=== PATIENT | female | born 1985 | race Caucasian/White ===

== ENCOUNTER 2020-11-25 01:04 | Emergency (ER) | payer MEDICAID, SELFPAY ==
[2020-11-25 01:04] VITALS: BP 153/97; PULSE 99; RESP 16; TEMP 36.8; O2SAT 95; BMI 26.6
--- NOTE | 2020-11-25 01:18 | ED.DCSUM_ITS ---
History of Present Illness Chief Complaint: Dental Informant: Patient Narrative: Patient presenting for evaluation secondary to dental pain. Patient reports that she had a root canal performed 2 days ago, and the last day she has had a significantly increasing onset of pain near the area where she had the root canal. She does report that she has some jaw swelling. No fevers chills sweats nausea vomiting or any new difficulty with opening closing her mouth. She does have a history of TMJ this is unchanged. No difficulty swallowing. She has been taking ibuprofen at home as well as using Orajel and this has not alleviated her symptoms. Review of systems otherwise negative. Past Medical History - Allergies and Home Meds Allergies/Adverse Reactions: Allergies No Known Allergies Allergy (Verified 11/25/20 01:09) Primary Care Physician: Chip Wright NP, DEVELOPMENTAL MATHEMATICS INSTRUCTOR-C [Primary Care Provider] - Prior records reviewed: Yes Past Medical History: None Surgical History: noncontributory Lives: With Family Smoking Status: Current every day smoker Alcohol: None Drugs: None Review of Systems General: Denies: Fever ENT: Reports: Right ear pain, - - Dental pain Respiratory: Denies: Dyspnea Gastrointestinal: Denies: Nausea, Vomiting Musculoskeletal: Denies: Myalgias Skin: Denies: Rash Neurological: Denies: Headache Hematologic: Denies: Easy bruising, Easy bleeding Physical Exam Vital Signs/Narrative: Vital Signs Temp Pulse Resp BP Pulse Ox 11/25/20 01:04 98.3 F 99 16 153/97 H 95 Inital Vital Signs reviewed: Yes General: Well nourished, Well developed, No Acute Distress Head: Normocephalic, Atraumatic Eyes: EOMI ENT: Moist mucous membranes, - - Patient's first right mandibular molar has a postoperative filling. There is no evidence of focal gum swelling or abscess. No trismus. Mild swelling noted to the outside of the face with no evidence of cellulitis. Clear posterior pharynx. Sublingual space is soft. Neck: Supple, Nontender Cardiovascular: Regular rate, Regular rhythm Respiratory: No distress Skin: Normal color, No rash Neurological: Alert, Oriented x3 Diagnostic/Tx/Re-eval - Medical Decision Making Patient presented secondary to dental pain. There is no outward evidence of significant infection although she does have some swelling of her jaw in that area. Patient was treated with an inferior alveolar block for pain control immediately. She will be discharged with a course of penicillin and a protra cted course of [place] until she can follow-up with her dentist. She was discharged in improved condition. Procedures Procedure(s): Inferior alveolar block was performed. Patient was placed in a semirecumbent position. Direct lighting was utilized, landmarks were located. A 24-gauge needle was entered and directed towards the angle of the patient's mandible. Bupivacaine was injected, total of 1-1/2 cc. Patient tolerated this well. ED Disposition - Plan for ED Patient: Disposition: Home or Assisted Living Diagnosis: Pain, dental Instructions: ED Dental Pain Prescriptions: Hydrocodone Bitart/Apap 5-325 [[place] 5MG-325MG] 1 tab PO Q6H PRN PRN 3 Days #12 tab PRN Reason: Pain Prescription Printed Penicillin V Potassium 500 mg PO 4X/DAY #20 tab Prescription Printed Additional Instructions: Follow-up with your dentist as soon as possible
[2020-11-25] MEDS: Penicillin Vk 250 MG Tablet 500 MG PO (01:32)
== END 2020-11-25 01:36 | disposition home or self-care (01) ==
PROVIDERS: Emergency Provider Emergency Medicine; PCP Nurse Practitioner Family
DX: K08.89 Other specified disorders of teeth and supporting structures (principal); Z98.818 Other dental procedure status; M26.609 Unspecified temporomandibular joint disorder, unspecified side; F17.200 Nicotine dependence, unspecified, uncomplicated
CPT/HCPCS: 64400; 64999; 99283

== ENCOUNTER 2021-04-17 15:52 | Emergency (ER) | payer MEDICAID, SELFPAY ==
[2021-04-17 15:53] VITALS: BP 133/96; PULSE 73; RESP 14; TEMP 36.5; O2SAT 99; BMI 27.1
--- NOTE | 2021-04-17 17:15 | CT_ITS ---
HISTORY: Pain TECHNIQUE: Multiple axial images were obtained of the brain without intravenous contrast. A radiation dose optimization technique was used for this scan. IV Contrast dosage and agent: None. COMPARISON: 05/27/16 FINDINGS: # of images incl. paperwork: 227 PARANASAL SINUSES AND MASTOID AIR CELLS: Clear. INTRACRANIAL HEMORRHAGE: None. BRAIN PARENCHYMA: No CT evidence of stroke. No intracranial masses. There is preservation of the shi/white matter interface. Posterior fossa structures are unremarkable. CSF SPACES: Appropriate for age. There is no hydrocephalus. MASS EFFECT: None. CALVARIUM: Intact. CT/Brain/Head without Contrast IMPRESSION: No acute intracranial findings. Individualized dose optimization techniques were used for this CT. at 1841 Reported and signed by: Bunny Cole MD Electronically Signed: Bunny Cole MD at 18:39 EDT Tel , Service support ,
--- NOTE | 2021-04-17 17:16 | EDS_ITS ---
HPI History of Present Illness Chief Complaint: Headache Narrative Narrative: 35-year-old female presenting with headache. She has a history of migraines ever since a head injury a couple of years ago. She states that she has a recurrent problems with this. She was just given a prescription for something from her primary care which she cannot recall. This did not help with her headache pain. She denies an acute onset headache or thunderclap headache. She states that this is one of the worst migraine she has had. She admits to photophobia and phonophobia. She denies head injury. She states she does not have concern for . She does not have fever, chills, neck pain. PFSH PFSH Home Medications fluoxetine 40 mg PO DAILY 04/17/21 [History Last Taken Unknown] Allergy/AdvReac Type Severity Reaction Status Date / Time No Known Allergies Allergy Verified 04/17/21 15:54 Social History Smoking Status: Current every day smoker tobacco type: cigarettes ROS ROS ED Constitutional Constitutional ED: Denies chills, fever(s) or sweats Eyes Eyes: Reports blurry vision and other Details: Photophobia and phonophobia ENT ENT ED: Denies rhinorrhea or sore throat Cardiovascular Cardiovascular: Denies chest pain or palpitations Respiratory/Chest Respiratory/Chest: Denies cough or dyspnea Gastrointestinal Gastrointestinal: Denies abdominal pain, nausea or vomiting Genitourinary Genitourinary ED: Denies dysuria or hematuria Musculoskeletal Musculoskeletal: Denies arthralgias, back pain, myalgias or neck pain Integumentary Denies Abrasions or rash Neurologic Neurologic: Reports headache(s); Denies paresthesias Psychiatric Psychiatric: Denies anxiety or depression EXAM Physical Exam Const Vital Signs: 04/17/21 15:53 04/17/21 18:47 Temperature 97.7 F L Temperature Source Temporal Pulse Rate 73 Respiratory Rate 14 14 Blood Pressure 133/96 H Blood Pressure Mean 108 Pulse Ox 99 Oxygen Delivery Method Room Air Positive well nourished General Appearance ED: NAD HEENT Reports normocephalic and moist mucous membranes atraumatic; Negative for temporal artery tenderness Eyes PERRL and EOMs intact bilaterally Neck no lymphadenopathy, supple and no meningeal signs General: Negative for tenderness Resp normal respiratory effort and clear to auscultation bilaterally Cardio regular rate and regular rhythm Back/Spine Cervical Spine: Negative for cervical spine tenderness Neuro oriented x3, CN's II-XII intact bilaterally and no sensory deficits noted Sensorium / Orientation: awake and alert Motor Exam: strength 5/5 throughout Psych mental status grossly normal Skin Lesions: no lesions Rashes: no rashes MDM MDM MDM Narrative Medical decision making narrative: Patient presenting with migraine and history of migraines. She states this was particularly bad so did obtain a head CT which is negative for acute intracranial process as interpreted by the radiologist. Patient states that he has an abortive therapy at home which is not helping she cannot recall the name of this. Patient given Compazine and Benadryl in the ED and her pain is down from a 10 to a 4. She will be given Toradol was given Toradol and was reevaluated and felt improved. Patient will be given follow-up with Dr. Moura as an outpatient as she does not have a neurologist. Patient stable for discharge at this time. Impression: 1. Headache Radiography Diagnostic Testing: Radiology Impression Brain CT 04/17/21 17:15 IMPRESSION: No acute intracranial findings. Individualized dose optimization techniques were used for this CT. at 1841 Reported and signed by: Bunny Cole MD Electronically Signed: Bunny Cole MD at 18:39 EDT Tel , Service support , Discharge Plan Triage Chief Complaint: Headache ED Provider: Mathieu Rodas Dx/Rx/DC Orders Prescriptions: No Action fluoxetine 40 mg capsule 40 mg PO DAILY RF: 0 Primary Care Provider: Rachel Mireles NP Referrals: Seng Moura MD [STAFF PHYSICIAN] - As soon as possible Rachel Mireles NP, METAL SPRAYER MACHINED PARTS-C [Primary Care Provider] - Disposition Disposition: Home, Self Care
[2021-04-17] MEDS: 0.9% Normal Saline 1,000 ML 999 ML IV (17:34)
[2021-04-17] MEDS: DiphenhydrAMINE 50 MG/ML Syringe 25 MG IV (17:34)
[2021-04-17] MEDS: proCHLORPERazine 10 MG/2 ML Vial IV (17:34)
[2021-04-17 18:47] VITALS: RESP 14
[2021-04-17] MEDS: Ketorolac 15 MG/ML Vial IV (19:17)
== END 2021-04-17 19:21 | disposition home or self-care (01) ==
PROVIDERS: Emergency Provider Student in an Organized Health Care Education/Training Program; PCP Registered Nurse
DX: G43.909 Migraine, unspecified, not intractable, without status migrainosus (principal); F17.210 Nicotine dependence, cigarettes, uncomplicated
CPT/HCPCS: 70450; 96361; 96374; 96375; 99283; A4216

== ENCOUNTER 2022-06-14 09:18 | Emergency (ER) | payer MEDICAID, SELFPAY ==
[2022-06-14 09:19] VITALS: BP 132/91; PULSE 80; RESP 18; TEMP 36.6; O2SAT 99; BMI 28.3
--- NOTE | 2022-06-14 10:08 | CT_ITS ---
EXAM: CT HEAD WITHOUT INTRAVENOUS CONTRAST CLINICAL INDICATION: Pain TECHNIQUE: Multiple axial images were obtained of the head without intravenous contrast. This CT exam was performed using one or more of the following dose reduction techniques: automated exposure control, adjustment of the mA and/or kV according to patient size, and/or use of iterative reconstruction technique. This report was created using e-SENS report generation technology. COMPARISON: CT Head dated april 17 2021 FINDINGS: BRAIN AND EXTRA-AXIAL SPACES: Normal. No intra- or extra-axial hemorrhage. No evidence of acute infarct. No intracranial mass or mass effect. There is preservation of the shi/white matter interface. Posterior fossa structures are unremarkable. Ventricles are appropriate for age. No hydrocephalus. Basal cisterns are patent. BONES/JOINTS: Normal. No discrete lytic or blastic abnormalities. SINUSES: 1.2 cm left maxillary sinus mucous retention cyst. No acute sinusitis. MASTOID AIR CELLS: Normal. Clear. ORBITS: Visualized globes, extraocular muscles, optic nerves and retrobulbar fat appear unremarkable. CT/Brain/Head without Contrast IMPRESSION: No acute intracranial abnormality. Electronically Signed: Fernando Calhoun MD at 11:06 EDT ,
--- NOTE | 2022-06-14 10:08 | EX.ED.VIS.HA ---
HPI History of Present Illness Chief Complaint: Headache Narrative Narrative: 36-year-old female with history of migraine presenting with migraine headache. She states that typically when she gets a migraine she has some visual disturbance and she is not able to see. Just what she is experiencing right now on her right eye. She states that usually after she goes to sleep she will wake up the next day and it will be gone. She states that when she woke up this morning after having a headache last night it was not gone and actually her vision was more obscured. She denies any slurred speech, facial droop, difficulty moving her extremities. No paresthesias. Patient denies any head trauma. She states this was not an acute onset headache. [facility] Medical History Anxiety Depression Migraine Home Medications fluoxetine 40 mg capsule 40 mg PO DAILY 04/17/21 [History Last Taken Unknown] Allergy/AdvReac Type Severity Reaction Status Date / Time No Known Allergies Allergy Verified 06/14/22 09:22 Social History Smoking Status: Current every day smoker tobacco type: cigarettes ROS ROS ED Constitutional Constitutional ED: Denies chills or fever(s) Eyes Eyes: Reports blurry vision right ENT ENT ED: Denies rhinorrhea or sore throat Cardiovascular Cardiovascular: Denies chest pain or palpitations Respiratory/Chest Respiratory/Chest: Denies cough or dyspnea Gastrointestinal Gastrointestinal: Denies abdominal pain or constipation Genitourinary Genitourinary ED: Denies dysuria or hematuria Musculoskeletal Musculoskeletal: Denies arthralgias or back pain Integumentary Denies abscess or Abrasions Neurologic Neurologic: Reports headache(s); Denies paresthesias Psychiatric Psychiatric: Denies anxiety or depression EXAM Physical Exam Const Vital Signs: 06/14/22 09:19 06/14/22 12:32 Temperature 97.9 F Temperature Source Temporal Pulse Rate 80 62 Respiratory Rate 18 15 Blood Pressure 132/91 H 138/77 H Blood Pressure Mean 104 97 Pulse Ox 99 98 Oxygen Delivery Method Room Air Room Air Positive well nourished General Appearance ED: NAD and pallor HEENT Reports normocephalic atraumatic Eyes PERRL and EOMs intact bilaterally General Eye ED: Yes normal appearance of both eyes Eyelid: eyelids normal Conjunctiva: conjunctiva normal Sclera: sclera normal Cornea: cornea normal Pupil: PERRL Resp normal respiratory effort and clear to auscultation bilaterally Auscultation: Negative for rales, rhonchi or wheezes Cardio regular rate and regular rhythm Extremity normal to inspection Neuro oriented x3, CN's II-XII intact bilaterally and no sensory deficits noted Sensorium / Orientation: awake and alert Motor Exam: strength 5/5 throughout Psych mental status grossly normal Skin General Skin Exam: pallor MDM MDM MDM Narrative Medical decision making narrative: Patient presenting with migraine headache. She states that it is typical for her to have some vision obscured when she has a headache. She states currently it is in her right eye. She is having trouble making out things and describes this as a haze in the right eye. The left eye is not having any issues. No signs of trauma. Vital signs are stable she is afebrile. Since she normally would go to sleep and this would go away I will obtain a head CT. She will be treated with Reglan, Benadryl, normal saline for now. CT of the brain is negative. Patient reevaluated at 12:09 PM. Patient states she still having a headache. She is given Toradol. Patient states she got up to go to the bathroom and after coming into the dark room into the light walking to the bathroom she noticed acute onset pain in her right eye. She states she looked in the mirror and noticed to red. I went in to reevaluate her and with the Neel-Pen I was able to get an eye pressure of 46 in the right eye. This is different than her initial examination when her pupils were equal and reactive. I spoke with Dr. Ashford who recommended sending her over to [facility]. He is expecting her. Patient is transported by her mother. Discharged in stable condition. Impression: 1. Migraine 2. Acute angle-closure glaucoma right eye Lab Data Attestation: I reviewed the patient's lab results. Radiography Diagnostic Testing: Clinical Impression(s) from Imaging Studies Brain CT 06/14/22 10:08 IMPRESSION: No acute intracranial abnormality. Electronically Signed: Fernando Calhoun MD at 11:06 EDT , Discharge Plan Triage Chief Complaint: Headache ED Provider: Mathieu Rodas Dx/Rx/DC Orders Instructions: ED Glaucoma, Narrow-Angle (Acute), ED, Migraine (Classical) Prescriptions: No Action fluoxetine 40 mg capsule 40 mg PO DAILY Label Comments: take 1 capsule by mouth once daily Primary Care Provider: Rachel Mireles NP Referrals: Perry Ashford MD [Med Staff - Active Staff] - As soon as possible Rachel Mireles NP, UTILITY MECHANIC-C [Primary Care Provider] - Disposition Disposition: Home, Self Care Discharge Date/Time: 06/14/22 12:33
[2022-06-14] MEDS: 0.9% Normal Saline 1,000 ML 999 ML IV (10:20)
[2022-06-14] MEDS: DiphenhydrAMINE 50 MG/ML Syringe 25 MG IV (10:21)
[2022-06-14] MEDS: Metoclopramide 10 MG/2 ML Vial IV (10:22)
[2022-06-14] MEDS: Ketorolac 15 MG/ML Vial IV (12:29)
[2022-06-14 12:32] VITALS: BP 138/77; PULSE 62; RESP 15; O2SAT 98
== END 2022-06-14 13:32 | disposition home or self-care (01) ==
LOC: ED 10:30
PROVIDERS: Emergency Provider Student in an Organized Health Care Education/Training Program; PCP Registered Nurse; Visit Provider Student in an Organized Health Care Education/Training Program
DX: G43.909 Migraine, unspecified, not intractable, without status migrainosus (principal); F17.210 Nicotine dependence, cigarettes, uncomplicated; H40.211 Acute angle-closure glaucoma, right eye; F41.9 Anxiety disorder, unspecified; F32.A Depression, unspecified; Z79.899 Other long term (current) drug therapy
CPT/HCPCS: 70450; 96361; 96374; 96375; 99283; J7030

== ENCOUNTER 2023-08-13 17:13 | Emergency (ER) | payer MEDICAID, SELFPAY ==
[2023-08-13 17:14] VITALS: BP 117/82; PULSE 86; RESP 16; TEMP 36.9; O2SAT 100; BMI 24.1
[2023-08-13 17:58] LABS: Bacteria 0 SEEN /hpf (None Seen); Mucous, Urine 0 SEEN /hpf (<or=2+); Red Blood Cells-Urine 0 SEEN /hpf (0-5)
[2023-08-13 18:03] LABS: Color, Urine Yellow (Yellow); Glucose, Dipstick Normal (Normal); Ketone-Dipstick Negative (Negative); Leukocyte Esterase-Dipstick Negative /ul (Negative); Nitrite-Dipstick Negative (Negative); Occult Blood-Urine Negative /ul (Negative); Protein-Dipstick Negative (Negative); Urine Bilirubin Dipstick Negative (Negative); Urine Clarity Clear (Clear); Urine Urobilinogen Normal (Normal)
[2023-08-13 18:14] LABS: Internal QC Validated? YES +Cl - CLEAR BKGD; Pregnancy, Serum, hCG Quali. NEGATIVE Negative
[2023-08-13 18:20] LABS: Squamous Epithelial Cells - UA 0-5 SEEN /hpf (5-10); White Blood Cells 0-5 SEEN /hpf (0-5)
--- NOTE | 2023-08-13 18:20 | CT_ITS ---
STUDY: CT ABDOMEN AND PELVIS WITHOUT CONTRAST REASON FOR EXAM: Female, 38 years old. Kidney Stone RADIATION DOSAGE (If Supplied By Facility): CTDIvol = ( 6.16 ) mGy, DLP = ( 306.12 ) mGycm TECHNIQUE: Transaxial images were obtained from the dome of the diaphragm to the symphysis pubis without oral contrast, and without intravenous contrast. Sagittal and coronal images were reconstructed. Individualized dose optimization techniques were used for this CT. COMPARISON: None. FINDINGS: The visualized lung bases are unremarkable. The visualized portions of the heart are within normal limits. Normal liver. Normal gallbladder and extrahepatic biliary system. Normal spleen. Normal pancreas. Normal bilateral adrenal glands. Normal right kidney. Normal left kidney. Normal visualized stomach. Normal small intestine. Normal colon. The appendix is visualized and appears normal. Normal abdominal aorta. Normal inferior vena cava. Normal retroperitoneum. Normal urinary bladder. Intrauterine device within the uterus. Normal abdominal wall. Normal osseous structures. CT/Abdomen/Pelvis without Cont IMPRESSION: Normal unenhanced CT of the abdomen and pelvis. Electronically Signed: Paul Blancas MD at 20:25 EST ,
--- NOTE | 2023-08-13 18:20 | ED.VIS.FEGU ---
HPI HPI - Female History of Present Illness Chief Complaint: Flank Pain Narrative Narrative: 38-year-old female who denies significant past medical history, presents with right flank pain and hematuria that she has had over the last week. She relates history that she had UTI type symptoms, and finished antibiotics. 2 days ago, she had blood in her urine. She denies any fevers or chills, but went to see her primary care provider who put her on another round of antibiotics and told her that if her symptoms of flank pain got worse, that she should report to the emergency department. While her hematuria has resolved, she states that she has low back pain that radiates up towards her kidney. She is not taking any analgesics currently. She denies any injury to her low back. No exacerbating or alleviating factors. [facility] Medical History Anxiety delivery delivered Depression Migraine Home Medications cephalexin 500 mg capsule 500 mg PO Q12H 08/13/23 [History Last Taken Unknown] Allergy/AdvReac Type Severity Reaction Status Date / Time No Known Allergies Allergy Verified 08/13/23 17:14 Social History household members: family housing: house current occupational status: employed Smoking Status: Current every day smoker tobacco type: cigarettes ROS ROS ED ROS Narrative Constitutional: No fever, no chills. HEENT: No sore throat. No neck pain. No loss of vision. No rhinorrhea. Cardiovascular: No chest pain. No palpitations. No pedal edema. Respiratory: No cough, no shortness of breath. Abdominal: No abdominal pain. No nausea. No vomiting. Genitourinary: No dysuria. 1 episode of hematuria-resolved. Positive right flank pain. Musculoskeletal: No myalgias. No arthralgias. Positive right low back pain. Neurologic: No headaches. No dizziness. No lightheadedness. Skin: No rash. No change in color. Psychiatric: No depression. No anxiety. EXAM Physical Exam Narrative Exam Narrative: Afebrile. Vital signs noted. HEENT: Normocephalic. Atraumatic. PERRL, EOMI. Neck soft and supple. No point tenderness or step off. Cardiovascular: Regular rate and rhythm. No murmurs, rubs, or gallops appreciated. Respiratory: No tachypnea. Lungs clear to auscultation bilaterally. Gastrointestinal: Abdomen soft, nontender, with normoactive bowel sounds. No rebound or guarding. Questionable CVA tenderness to percussion, right. Neurological: Awake. Alert. Nonfocal, nonlateralizing. Skin: No rash. Normal color. No pallor. Musculoskeletal: No pedal edema. Full range of motion extremities. Const Vital Signs: 08/13/23 17:14 Temperature 98.4 F Temperature Source Temporal Pulse Rate 86 Respiratory Rate 16 Blood Pressure 117/82 H Blood Pressure Mean 93 Pulse Ox 100 Oxygen Delivery Method Room Air MDM MDM MDM Narrative Medical decision making narrative: In the differential diagnosis is pyelonephritis versus ureterolithiasis with ureteral colic versus musculoskeletal back pain. Patient does have an IUD/Mirena in place. Nursing protocol obtained a test which is negative after review, serum test. Her urinalysis was reviewed and macro analysis is negative for leukocyte esterase or nitrites, or ketones. It is also negative for occult blood. I do feel that CT imaging is indicated. CBC and BMP will also be obtained to check her kidney function and look for elevated white count. Initially, she declined analgesics. I reviewed her laboratory work and she has normal white count of 6.7, hemoglobin normal at 13.1, platelet count normal at 245. Chloride is slightly elevated at 109 on her BMP which I think is nonspecific, BUN normal at 10 with creatinine normal at 0.70. Serum was reviewed and is negative. I reviewed the CT report of her abdomen and pelvis without contrast and she has no evidence of hydronephrosis or ureterolithiasis, essentially normal CT imaging. I am unsure as to the cause of her flank pain. While she was awaiting her CT results she did accept Toradol. I do not feel narcotic pain medication is indicated. She will follow-up with her primary care provider and take [id number] medications as needed. I do not feel she requires observation at this time. Return instructions to the emergency department were reviewed. Disposition is discharged home in stable condition. History & Record Review Discussion w/independent historian: Patient Additional record(s) reviewed:: Prior ED visit Lab Data Attestation: I reviewed the patient's lab results. Labs: Laboratory Results - last 24 hr 08/13/23 08/13/23 08/13/23 17:30 17:38 18:53 WBC 6.7 RBC 4.37 Hgb 13.1 Hct 39.3 MCV 89.9 MCH 30.0 MCHC 33.3 RDW Std Deviation 42.4 RDW Coeff of [place] 12.9 Plt Count 245 MPV 9.3 Immature Gran % (Auto) 0.100 Neut % (Auto) 47.5 Lymph % (Auto) 41.6 H [place] % (Auto) 8.4 Eos % (Auto) 1.8 Baso % (Auto) 0.6 Absolute Neuts (auto) 3.2 Absolute Lymphs (auto) 2.78 Nucleated RBC % 0 Sodium 140 Potassium 3.7 Chloride 109 H Carbon Dioxide 29.0 Anion Gap 2 L BUN 10 Creatinine 0.70 Estim Creat Clear Calc 99.98 Est GFR (MDRD) Af Amer 121 Est GFR (MDRD) Non-Af 100 BUN/Creatinine Ratio 14.2 Glucose 86 Calcium 8.6 Serum , Qual NEGATIVE Urine Color Yellow Urine Clarity Clear Urine pH 7.0 Ur Specific [place] 1.010 Urine Protein Negative Urine Glucose (UA) Normal Urine Ketones Negative Urine Occult Blood Negative Urine Nitrite Negative Urine Bilirubin Negative Urine Urobilinogen Normal Ur Leukocyte Esterase Negative Urine RBC 0 SEEN Urine WBC 0-5 SEEN Ur Squamous Epith Cells 0-5 SEEN Urine Bacteria 0 SEEN Urine Mucus 0 SEEN Radiography Diagnostic Testing: Clinical Impression(s) from Imaging Studies Abdomen/Pelvis CT 08/13/23 18:20 IMPRESSION: Normal unenhanced CT of the abdomen and pelvis. Electronically Signed: Pual Blancas MD at 20:25 EST , Discharge Plan Triage Chief Complaint: Flank Pain ED Provider: Mac Lane Dx/Rx/DC Orders Clinical Impression: Low back pain, Flank pain Instructions: ED Back Pain (Acute or Chronic), ED Flank Pain, Uncertain Cause, ED Pain, Acute, Uncertain Cause Prescriptions: No Action cephalexin 500 mg capsule 500 mg PO Q12H Primary Care Provider: Rachel Mireles NP Referrals: Rachel Mireles NP, FLEXIBLE MACHINING SYSTEM MACHINIST-C [Primary Care Provider] - 3-5 Days if not improving Disposition Disposition: Home, Self Care
[2023-08-13] MEDS: 0.9% Normal Saline (1000mL) 1,000 ML 250 ML IV (18:55)
[2023-08-13 19:08] LABS: Absolute Lymphocyte Count 2.78 X10^3/uL (0.83-4.51); Absolute Neutrophil Count 3.2 X10^3/uL (2.0-7.7); Basophil# 0.04 X10^3/uL; Basophil% 0.6 % (0-1); Eosinophil# 0.12 X10^3/uL; Eosinophils% 1.8 % (0-5); Hematocrit 39.3 % (37-47); Hemoglobin 13.1 g/dL (12.0-15.0); Lymphocyte # 2.78 X10^3/ul (0.83-4.51); Lymphocyte % 41.6 % (19-41); Mean Corp Hgb Conc 33.3 g/dL (32-36); Mean Corpuscular Volume 89.9 fL (81-99); Mean Platelet Vol. 9.3 fl (6.2-12.0); Monocyte# 0.56 X10^3/uL; Monocyte% 8.4 % (0-10); NRBC Flagged by Analyzer 0 % (0-5); Neutrophil # 3.17 X10^3/uL (2.7-7.7); Neutrophil % 47.5 % (47-70); Platelet Count 245 K/mm3 (150-450); RBC Distribution Width CV 12.9 % (11.6-14.6); RBC Distribution Width SD 42.4 fl (35.1-43.9); Red Blood Count 4.37 M/mm3 (4.2-5.4); White Blood Count 6.7 K/mm3 (4.4-11.0)
[2023-08-13 19:25] LABS: Anion Gap 2 (5-15); BUN 10 mg/dL (7-18); BUN/Creat Ratio 14.2 RATIO (10-20); Calcium,Total 8.6 mg/dL (8.5-10.1); Chloride 109 mmol/L (98-107); EST Glomerular Filtration Rate 100 mL/min (>60); Est Glom Filt Rate - Afr Amer 121 mL/min (>60); Estimated Creatinine Clearance 99.98 ml/min; Glucose 86 mg/dL (74-106); Potassium 3.7 mmol/L (3.5-5.1); Sodium Level 140 mmol/L (136-145)
[2023-08-13] MEDS: Ketorolac 30 MG/ML Syringe IV (20:58)
[2023-08-13 21:03] VITALS: RESP 14
== END 2023-08-13 21:04 | disposition home or self-care (01) ==
PROVIDERS: Emergency Provider Emergency Medicine; PCP Registered Nurse; Visit Provider Emergency Medicine
DX: R10.9 Unspecified abdominal pain (principal); M54.50 Low back pain, unspecified; F17.210 Nicotine dependence, cigarettes, uncomplicated
CPT/HCPCS: 74176; 80048; 81001; 84703; 85025; 96361; 96374; 99283; J7030; A4216